=== PATIENT | male | born 1985 | race Caucasian/White ===

== ENCOUNTER 2018-06-09 15:23 | Emergency (ER) | payer MEDICAID, OTHER ==
[2018-06-09 16:41] VITALS: BP 137/90; PULSE 77; RESP 16; TEMP 98.1; O2SAT 100
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
[2018-06-09] MEDS ORDERED: Lidocaine 1% Inj (20ml) IJ ONE (16:57)
[2018-06-09] MEDS ORDERED: Lidocaine 1% Inj (20ml) ONE (17:19)
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
== END 2018-06-09 18:18 | disposition home or self-care (01) ==
LOC: H.ER 15:23
DX: S01.511A Laceration without foreign body of lip, initial encounter (principal); W22.8XXA Striking against or struck by other objects, initial encounter; Y99.0 Civilian activity done for income or pay

== ENCOUNTER 2018-07-31 03:02 | Emergency (ER) | payer SELFPAY ==
[2018-07-31 03:22] VITALS: BMI 34.0
[2018-07-31 03:29] VITALS: BP 144/90; PULSE 96; RESP 18; TEMP 97.9; O2SAT 98
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
--- NOTE | 2018-07-31 08:58 | CT ---
Date of service: 07/31/2018 PROCEDURE: CT HEAD WITHOUT CONTRAST. HISTORY: headache COMPARISON: 12/05/2015 TECHNIQUE: Axial computed tomography images were obtained through the head/brain without intravenous contrast. Supplemental Coronal and Sagittal projections created and reviewed. Radiation dose: Total exam DLP = 1007.31 mGy-cm. This CT exam was performed using one or more of the following dose reduction techniques: Automated exposure control, adjustment of the mA and/or kV according to patient size, and/or use of iterative reconstruction technique. FINDINGS: HEMORRHAGE: No intracranial hemorrhage. BRAIN: No mass effect or edema. No atrophy or chronic microvascular ischemic changes. VENTRICLES: Unremarkable. No hydrocephalus. CALVARIUM: Unremarkable. PARANASAL SINUSES: Unremarkable as visualized. No significant inflammatory changes. MASTOID AIR CELLS: Unremarkable as visualized. No inflammatory changes. OTHER FINDINGS: None. IMPRESSION: No acute intracranial abnormalities. No significant findings to account for the clinical presentation. No significant interval change compared to the prior examination(s). Concordant results (preliminary interpretation) provided by [employer] - is now [employer]. Procedure Completed: 03:36. Preliminary Report: Dictated and Authenticated: 04:02. Final Interpretation: 08:55.
== END 2018-07-31 04:20 ==
LOC: H.ER 03:02
DX: F43.20 Adjustment disorder, unspecified (principal); S09.90XA Unspecified injury of head, initial encounter; J45.909 Unspecified asthma, uncomplicated; Y04.8XXA Assault by other bodily force, initial encounter